=== PATIENT | female | born 1980 | race Hispanic/Latino ===

== ENCOUNTER 2016-04-26 21:00 | Emergency (ER) | payer MEDICAID, MEDICARE ==
[~2016-04-26] VITALS: Ht 160 cm; Wt 75.5 kg
[~2016-04-26 21:00] MED LIST: DSS100 PO; IBUP-1152 PO; OXYC-176 PO; PREN1TAB69 PO; ProAirHFA IH
[2016-04-26 21:18] VITALS: BP 113/71; PULSE 74; RESP 16; O2SAT 100
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
[2016-04-26 23:21] VITALS: BP 113/71; PULSE 74; RESP 16; O2SAT 100
--- NOTE | 2016-04-27 07:52 | DRSVH ---
PROCEDURE: X-RAY CHEST ONE VIEW ([id number]) INDICATIONS: fall, trauma TECHNIQUE: One view of the chest was acquired. COMPARISON: None. FINDINGS: Surgical changes and devices: Surgical clips right upper quadrant. Lungs and pleura: No pleural effusions or pneumothorax. Lungs are clear. Mediastinum: Mediastinal contours appear normal. Heart size is normal. Bones and chest wall: No suspicious bony lesions. Overlying soft tissues appear unremarkable. IMPRESSION: No displaced rib fractures. No apparent sequelae of an occult fracture. Dictated by: Jose Angel Vega M.D. on 04/27/2016 at 7:50 Approved by: Jose Angel Vega M.D. on 04/27/2016 at 7:50
--- NOTE | 2016-04-27 07:53 | DRSVH ---
PROCEDURE: X-RAY CERVICAL SPINE, 2 OR 3 VIEWS INDICATIONS: fall, trauma TECHNIQUE: 3 view(s) of the cervical spine were acquired. COMPARISON: None. FINDINGS: Bones: Cervical lordosis is maintained. No fractures or dislocations to the T1 level. The lateral m asses of C1 appear intact on the odontoid view. No suspicious bony lesions. Disc spaces are maintain ed. Soft tissues: No prevertebral soft tissue swelling. IMPRESSION: Normal cervical spine Dictated by: Jose Angel Vega M.D. on 04/27/2016 at 7:51 Approved by: Jose Angel Vega M.D. on 04/27/2016 at 7:51
--- NOTE | 2016-04-27 07:54 | DRSVH ---
PROCEDURE: X-RAY RIGHT SHOULDER, MINIMUM TWO VIEWS ([id number]) INDICATIONS: fall, trauma TECHNIQUE: 3 views of the shoulder were acquired. COMPARISON: None. FINDINGS: Bones: No fractures or dislocations. No suspicious bony lesions. Visualized ribs appear intact. Soft tissues: No suspicious soft tissue calcifications. IMPRESSION: Normal shoulder Dictated by: Jose Angel Vega M.D. on 04/27/2016 at 7:52 Approved by: Jose Angel Vega M.D. on 04/27/2016 at 7:52
--- NOTE | 2016-04-27 08:37 | DRSVH ---
PROCEDURE: US OB PLACENTA EVALUATION LIMITED INDICATIONS: fall, back trauma, cramping OUTSIDE/PRIOR DATING DATA: Last menstrual period (LMP): Unknown LMP-based estimated date of delivery (ANJUM): N./A.. First dating scan (date and location): . Estimated date of delivery (ANJUM) from first dating scan: 08/09/2016. TECHNIQUE: Real-time scanning was performed of the fetus, with image documentation. Endovaginal scanning: Not required COMPARISON: None. FINDINGS: A single living intrauterine gestation is present. Presentation: Breech. Placenta: Placental position is left frontal, without previa or abruption. Amniotic fluid index: Not measured heart rate: 145 beats per minute. Maternal cervical canal: 4.1 cm long. Normal lower limit is 2.5 cm. Estimated gestational age from initial scan: 25 weeks. IMPRESSION: Live intrauterine gestation in breech position. No placental abruption. Visualized anatomy is n ormal. Dictated by: Jose Angel Vega M.D. on 04/27/2016 at 8:35 Approved by: Jose Angel Vega M.D. on 04/27/2016 at 8:35
== END 2016-04-26 23:29 | disposition home or self-care (01) ==
LOC: SED 21:00
DX: O9A.213 Injury, poisoning and certain other consequences of external causes complicating pregnancy, third trimester (principal); S16.1XXA Strain of muscle, fascia and tendon at neck level, initial encounter; S40.011A Contusion of right shoulder, initial encounter; W01.198A Fall on same level from slipping, tripping and stumbling with subsequent striking against other object, initial encounter; Y93.89 Activity, other specified; Y92.89 Other specified places as the place of occurrence of the external cause; Y99.8 Other external cause status; Z3A.25 25 weeks gestation of pregnancy

== ENCOUNTER 2016-08-01 13:28 | Inpatient (IN) | payer MEDICARE, MEDICAID ==
[~2016-08-01] VITALS: Ht 160 cm; Wt 87.5 kg
[2016-08-01] MEDS ORDERED: Ondansetron 2 mg/mL 2 mL Inj ONE (14:00)
[2016-08-01] MEDS ORDERED: Phenylephrine/NS 100 mCg/mL 10 mL Syringe IVPUSH ONE (14:00)
[2016-08-01] MEDS ORDERED: Bupiv-Spinal 0.75%/Dex 8.25% 2 mL Inj ONE (14:00)
[2016-08-01] MEDS ORDERED: Morphine PF 1 mg/mL 10 mL Inj ONE (14:00)
[2016-08-01] MEDS ORDERED: fentaNYL-PF 50 mCg/mL 2 mL Inj ONE (14:00)
[2016-08-01] MEDS ORDERED: Dexamethasone 4 mg/mL Inj ONE (14:00)
[2016-08-01] MEDS ORDERED: Lactated Ringer's 1,000 ML IV SCH ×2 (14:06→17:06)
[2016-08-01] MEDS ORDERED: Carboprost 250 mCg/mL Inj IM PRN ×2 (14:10→19:15)
[2016-08-01] MEDS ORDERED: Sodium Citrate-Citric Acid 15 mL Solution PO SCH (14:10)
[2016-08-01] MEDS ORDERED: Methylergonovine 0.2 mg/mL Inj IM PRN ×2 (14:10→19:15)
[2016-08-01] MEDS ORDERED: Oxytocin 10 Unit/mL Inj IM PRN ×2 (14:10→19:15)
[2016-08-01] MEDS ORDERED: Hemorrhage Kit, Post Partum XX ONE ×2 (14:10→19:15)
[2016-08-01] MEDS ORDERED: CeFAZolin Inj 2 GM in IV Premix 1 EACH IV STA (14:37)
[2016-08-01 15:09] LABS: Mean Corpuscular Hemoglobin 27.7 pg (27.0-35.0); Mean Corpuscular Volume 86.2 fL (81-100)
[2016-08-01] MEDS ORDERED: Sodium Biphos-Phos 133 mL Enema RECTAL ONE (15:35)
[2016-08-01] MEDS ORDERED: fentaNYL-PF 50 mCg/mL 2 mL Inj IVPUSH PRN ×2 (15:45→17:10)
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
[2016-08-01] MEDS ORDERED: Lactated Ringer's 1,000 ML IV ONE (17:01)
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
[2016-08-01] MEDS ORDERED: Lactated Ringer's 500 ML IV PRN (17:06)
[2016-08-01] MEDS ORDERED: Ondansetron 2 mg/mL 2 mL Inj IVPUSH PRN (17:10)
[2016-08-01] MEDS ORDERED: Dexamethasone 4 mg/mL Inj IVPUSH PRN (17:10)
[2016-08-01] MEDS ORDERED: Phenylephrine 10,000 mCg/mL Inj IVPUSH PRN (17:10)
[2016-08-01] MEDS ORDERED: MetoCLOpramide 5 mg/mL 2 mL Inj IVPUSH PRN (17:10)
[2016-08-01] MEDS ORDERED: diphenhydrAMINE 50 mg Capsule PO PRN (19:15)
[2016-08-01] MEDS ORDERED: Sodium Chloride LOK Flush 10 mL Syringe IVFLUSH PRN (19:15)
[2016-08-01] MEDS ORDERED: LANOlin HPA 7 Gm Ointment TOPICAL PRN (19:15)
[2016-08-01] MEDS ORDERED: Oxytocin 30 Units/500 mL LR 30 UNITS in IV Premix 1 EACH IV PRN (19:15)
--- NOTE | 2016-08-01 20:21 | PCM.ANEP2 ---
Post Anesthesia Evaluation ASA/CMS Post Anesthesia VS in Patient's Normal Range?: Yes Resp Stable; Airway Patent?: Yes CV Function & Hydration Stable: Yes Mental Status Recovered?: Yes Pain control Satisfactory?: Yes N/V Control Satisfactory?: Yes Kevin Patel MD Aug 01, 2016 20:21
--- NOTE | 2016-08-01 20:21 | PCM.ANEP1 ---
Post Anesthesia Phase 1 PACU Phase 1 Assessment Vital Signs BP 130/70 HR 80 SPO2 96 TEMP 36.3 AWAKE AND ALERT Pain Scale Score: 7 Lungs: Clear to Auscultation, Normal Air Movement Kevin Patel MD Aug 01, 2016 20:21
[2016-08-01] MEDS: Lactated Ringer's 1,000 ML IV SCH (21:08)
[2016-08-01] MEDS: Acetaminophen IV 1,000 MG in IV Premix 1 EACH IV PRN (21:22)
--- NOTE | 2016-08-02 03:11 | OP ---
[address] [address] OPERATIVE REPORT PATIENT: ANTHONY LOVETT I : 1980 MR#: [id number] ADMIT: 08/01/2016 JOB ID: [id number] DATE OF SURGERY: 08/01/2016 PREOPERATIVE DIAGNOSIS(ES): 1. Previous delivery x2. 2. A 39 week 1 day gestation. 3. Sterilization. POSTOPERATIVE DIAGNOSIS(ES): 1. Previous delivery x2. 2. A 39 week 1 day gestation. 3. Sterilization. 4. Delivered. PROCEDURE PERFORMED: 1. Repeat low-transverse delivery. 2. Bilateral tubal ligation using modified [place] method. SURGEON: Shayy Sosa MD. COOKER TENDER: Sandoval Vela MD. RESIDENT: Krista Thompson DO, PGY-1. COMPLICATIONS: None. PATHOLOGY: None. FINDINGS AT TIME OF SURGERY: A female infant in cephalic presentation with weight of 3545 g. Apgars of 8 and 8. There is thick meconium stained amniotic fluid upon entry into the amniotic sac. The uterus, ovaries and fallopian tubes are normal bilaterally. Otherwise, there was no significant intraperitoneal adhesion. INDICATION FOR PROCEDURE: The patient is a 35-year-old 5, para 3 with a history of two prior deliveries and undesired fertility. She presented to triage in early labor. PROCEDURE: The patient was taken to the operative room, where her spinal anesthesia was found be adequate. She was placed in a lithotomy position in a leftward tilt and prepared and draped in normal sterile fashion. A Pfannenstiel incision was made with a scalpel in the skin. This was carried down to the underlying fascia with the Bovie cautery. Fascia was nicked in the midline an this incision was extended laterally with Carson scissors. The fascia was then tented up and the underlying rectus muscle was dissected off with both blunt and sharp dissection superiorly and inferiorly. Rectus muscle in midline and peritoneum entered bluntly with surgeon's hands. This incision was extended with traction. The lower uterine segment was identified and incised in a low transverse fashion with a scalpel. Infant was delivered in a cephalic presentation without difficulty. Delayed cord clamping was performed. After one minute the cord was double clamped and ligated. Infant handed off to the waiting case management social worker. The placenta was removed manually. The uterus was exteriorized, cleared of all clots and debris. The uterine incision was repaired in a single layer with 0-Vicryl suture. Good hemostasis was assured. A bilateral tubal ligation was performed. The right fallopian tube was grasped in the isthmic portion and a defect was made in the mesosalpinx. Two free ties of 0 chromic were used to isolate and ligate a segment of tube and the intervening segment was excised. The tubal lumen were cauterized with the Bovie cautery. Good hemostasis was assured. In a similar fashion the left fallopian tube was grasped in mid isthmic portion and a defect made in the mesosalpinx. Two free ties of 0 chromic suture were used to isolate and ligate a segment of tube and the intervening segment was excised. The tubal lumen were then cauterized with Bovie cautery. The gutters were then irrigated with copious amounts of normal saline and the uterus returned to the patient's peritoneal cavity. The skin was inspected a second time. Another suture of 0-Vicryl in a [id number] fashion was used for hemostasis. More irrigation was performed. Good hemostasis was assured. The fascia was then reapproximated with 0 PDS in a running fashion. They were anchored at the apices and tied separately in the midline. The subcutaneous layer was closed with 0 plain gut. Skin was closed with 4-0 Monocryl in a subcuticular fashion. Dermabond and Steri-Strips applied. All lap, instrument, and needle counts correct x2 at the end of procedure. Patient was taken to room in good condition. TAYLOR
[2016-08-02] MEDS: Lactated Ringer's 1,000 ML IV SCH ×2 (03:15→19:15)
[2016-08-02] MEDS: Acetaminophen IV 1,000 MG in IV Premix 1 EACH IV PRN (03:28)
[2016-08-02 06:28] LABS: Mean Corpuscular Volume 87.1 fL (81-100)
[2016-08-02] MEDS: Ascorbic Acid 500 mg Tablet PO SCH (08:49)
[2016-08-02] MEDS: oxyCODONE-Acetamin 5-325 mg Tablet PO PRN ×4 (08:49→23:05)
[2016-08-02] MEDS ORDERED: diphenhydrAMINE 25 mg Capsule PO PRN (19:32)
--- NOTE | 2016-08-02 20:20 | PCM.PNOBPP ---
Subjective Date of Service Aug 02, 2016 Post : Repeat Cesere[place] Delivery Subjective Ms. White is a 35 y/o now 4 woman at 39 weeks 1 days gestation s/p repeat section and bilateral tubal ligation. Today is post-op and post day 1. She does not have nausea or vomiting. She had a small bowel movement yesterday but still feels constipated. She has pain at the incision site, especially on the left side. She has been up walking since yesterday evening. 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 Lochia: Other (moderate) Gastrointestinal: Good Appetite, No N/V, Passing Flatus Postop Activity: Ambulating Independently, Ambulating in [place] Labs Blood type O+, Pap smear negative, varicella immune, rubella immune, HIV non- reactive, RPR non-reactive, chlamydia negative, gonorrhea negative, 1 hour glucose tolerance test within normal limits. Rubella: Immune Blood Type: O RH Type: Positive Labs Laboratory Tests 08/02/16 06:05: White Blood Count 13.7, Red Blood Count 3.96, Hemoglobin 11.1, Hematocrit 34.5, Mean Corpuscular Volume 87.1, Mean Corpuscular Hemoglobin 28.0, Mean Corpuscular Hemoglobin Concent 32.2, Red Cell Distribution Width 14.6, Platelet Count 268 Exam Vital Signs Vital Signs: VS reviewed, stable Exam Abdomen: Uterus is, Fundus firm, Abdomen soft, Abdomen appropriately tender : Melendez catheter Extremities: Edema 1+ (bilateral pedal) Lungs: Clear to Auscultation, Normal Air Movement Heart: Exam Unremarkable, Regular Rate/Rhythm, Normal S1 General: Alert, Oriented X3, Cooperative, No Acute Distress Surgical Wound : Incision General Appearence: Steri Strips, Well Approximated, No Erythemia, No Discharge, No Inflammatory Changes, Wound under dressing Dressing & Drainage Status: Dry & Intact OB Post Assessment/Plan Assessment 1. 35 y/o now 4 woman status post repeat section due to 2 previous sections. Today is post-op and post- day 1. -Continue routine post- care 2. Desired sterilization, s/p bilateral tubal ligation. Post-op day 1. 3. Headache, recurrent, resolved. -Continue to monitor blood pressure and will start ibuprofen after delivery as needed for pain 4. Constipation, recurrent -Continue as needed medications 5. Chronic depression -Will resume citalopram 40 mg once daily VTE Mechanical Devices: Intermittant Pneumatic CD Post plan: Continue routine post care, Discharge home tomorrow Krista Thompson DO Aug 02, 2016 20:20
[2016-08-03] MEDS: Lactated Ringer's 1,000 ML IV SCH (00:11)
[2016-08-03] MEDS: oxyCODONE-Acetamin 5-325 mg Tablet PO PRN ×3 (03:01→17:17)
[2016-08-03] MEDS: Ascorbic Acid 500 mg Tablet PO SCH (07:21)
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
[2016-08-03 14:38] LABS: Mean Corpuscular Hemoglobin 27.8 pg (27.0-35.0); Mean Corpuscular Volume 88.7 fL (81-100)
[2016-08-03 15:17] LABS: Magnesium 1.7 mg/dL (1.6-2.6); Phosphorus 4.5 mg/dL (2.5-4.9); TROPONIN T < 0.010 ug/L (0.0-0.011)
[2016-08-03] MEDS: hydrOXYzine Pamoate 25 mg Capsule PO PRN ×2 (15:35→17:17)
--- NOTE | 2016-08-03 16:50 | DRSVH ---
PROCEDURE: MRI BRAIN WITHOUT CONTRAST ([id number]) INDICATIONS: Left facial drooping,cva symptoms TECHNIQUE: Noncontrast axial T1 spin echo, axial T2 fast spin echo, sagittal and axial FLAIR, coronal T2 fast sp in echo, axial gradient echo, axial diffusion and ADC through the brain. COMPARISON: [facility], CT, CT BRAIN WO CON, 08/03/2016, 13:20. FINDINGS: Image quality: Excellent. CSF Spaces: Basal cisterns are patent. No extra-axial fluid collections. Ventricles are normal in size and shape. Brain: No intracranial masses or hemorrhage. Frank/white matter interface is normal. Brainstem appe ars normal. Diffusion-weighted images demonstrate no acute ischemic insult. No chronic ischemic ins ults. Normal intravascular flow voids are present. Old left parieto-occipital infarct with subseque nt encephalomalacia and ex vacuo ventricular dilation. 3 mm focus of hypointense susceptibility signal within the left frontal lobe. No calcifications withi n this region are identified on CT brain examination. Skull and face: Calvarium has normal marrow signal. Orbits appear normal. Sinuses: Sinuses and mastoids are clear. IMPRESSION: 1. No acute intracranial process. No acute ischemia. 2. Prominent left parietal occipital infarct. 3. Left frontal focus of hypointense susceptibility signal as above. This could represent a small cav ernous angioma. Dictated by: Lexi Feng M.D. on 08/03/2016 at 16:46 Approved by: Lexi Feng M.D. on 08/03/2016 at 16:49
[2016-08-03 17:02] LABS: APPEARANCE,URINE CLEAR (CLEAR,HAZY); COLOR,URINE STRAW (YELLOW); OCCULT BLOOD,URINE SMALL (NEGATIVE); UROBILINOGEN,URINE NORMAL (NORMAL)
--- NOTE | 2016-08-03 19:13 | DRSVH ---
PROCEDURE: US VENOUS LEG DUPLEX BILATERAL INDICATIONS: edema bilateral TECHNIQUE: Real-time imaging, as well as color and pulse Doppler interrogation, were performed of the deep veins of both legs from the inguinal ligament to the popliteal fossa. COMPARISON: None. FINDINGS: The deep veins are normally compressible, and free of intraluminal thrombus. Color and pu lse Doppler demonstrate normal phasic intravascular flow. There is normal augmentation response to d istal compression maneuver. IMPRESSION: No DVT in the lower extremities. Dictated by: Wiley Park M.D. on 08/03/2016 at 19:11 Approved by: Wiley Park M.D. on 08/03/2016 at 19:11
--- NOTE | 2016-08-03 19:15 | DRSVH ---
PROCEDURE: US BILATERAL DUPLEX DOPPLER IMAGING OF THE CAROTIDS ([id number]) INDICATIONS: cva TECHNIQUE: Color and pulse Doppler interrogation was performed of both carotid systems, with image documentation and velocity measurements. COMPARISON: None. FINDINGS: All stenosis calculations are based on NASCET criteria. Right side: Common carotid artery peak systolic velocity: 85 cm/sec. Internal carotid artery peak systolic velocity: 116 cm/sec. Internal carotid artery end diastolic velocity: 30 cm/sec. External carotid artery peak systolic velocity: 119 cm/sec. ICA/CCA peak systolic ratio: 1.38. Frank scale imaging description: No significant PACS Percent internal carotid artery stenosis: No significant stenosis. Vertebral artery: Flow direction is antegrade. Left side: Common carotid artery peak systolic velocity: 115 cm/sec. Internal carotid artery peak systolic velocity: 101 cm/sec. Internal carotid artery end diastolic velocity: 31 cm/sec. External carotid artery peak systolic velocity: 91 cm/sec. ICA/CCA peak systolic ratio: 0.9. Frank scale imaging description: No significant PACS Percent internal carotid artery stenosis: No significant stenosis. Vertebral artery: Flow direction is antegrade. IMPRESSION: No significant carotid stenosis bilaterally. Dictated by: Wiley Park M.D. on 08/03/2016 at 19:11 Approved by: Wiley Park M.D. on 08/03/2016 at 19:14
--- NOTE | 2016-08-03 19:51 | DRSVH ---
CORRECTED ACCESSION/PLACER NUMBER AND PROCEDURE NAME ON 08/06/16 PROCEDURE: MRA ANGIOGRAM NECK WITH AND WITHOUT CONTRAST ([id number]) INDICATIONS: left facial droop TECHNIQUE: Axial and sagittal TruFISP through the neck. Coronal dynamic MRA after the administration of contras t in the arterial and venous phases, with rotating 3-dimensional maximum intensity projection (MIP) r eformats constructed from subtraction images. COMPARISON: [facility], MR, MR BRAIN WO CON, 08/03/2016, 16:16. FINDINGS: Image quality: Excellent. Carotid system: Great vessels demonstrate a bovine aortic arch with common origin of the right brach iocephalic and left common carotid arteries. The origins of the common carotid arteries appear ganesh l. The calibers and courses of the common carotid arteries also appear patent bilaterally. The jenkins tid bulbs appear widely patent bilaterally. The internal carotid arteries are patent up to the Circl e of [place]. Posterior circulation: The origins of the vertebral arteries are patent. There is a left dominant v ertebrobasilar system with a diminutive right vertebral artery. The distal right vertebral artery is not well-visualized and may represent distal occlusion or an anatomic variant. The basilar artery s upplied by the left vertebral artery and appears patent along its course. Miscellaneous: Subclavian arteries appear patent bilaterally. Pre-contrast images through the neck demonstrate no definite soft tissue abnormalities. The visualized brain again demonstrates a large r egion of encephalomalacia in the left occipital and posterior temporal lobes consistent with prior in farct or. IMPRESSION: 1. Left dominant vertebrobasilar system with a diminutive right vertebral artery which is not visual ized distally suggesting occlusion or an anatomic variant. Basilar artery is supplied by the dominan t left vertebral artery and appears patent. 2. No high-grade stenosis or occlusion of the anterior circulation. Carotid bulbs are widely patent . The estimate of stenosis included in the report of the imaging study was calculated using the NASCET method Dictated by: Lenin Valencia M.D. on 08/03/2016 at 19:50 Approved by: Lenin Valencia M.D. on 08/03/2016 at 19:50
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
[2016-08-04] MEDS: oxyCODONE-Acetamin 5-325 mg Tablet PO PRN ×2 (02:05→16:14)
--- NOTE | 2016-08-04 14:44 | DRSVH ---
PROCEDURE: MRA ANGIOGRAM HEAD WITHOUT CONTRAST ([id number]) INDICATIONS: Left facial droop TECHNIQUE: Noncontrast axial 3-D [id number] MR angiogram, with 3-dimensional maximum intensity projection (M IP) reformats of the internal carotid arteries and posterior circulation then performed. COMPARISON: [facility], MR, MR ANGIO NECK W CON, 08[facility]03[facility]2016, 19[facility] CON, 08/03/2016, 13:20. FINDINGS: Image quality: Excellent. Anterior circulation: Intracranial internal carotid arteries are patent bilaterally. The flow withi n the paired anterior cerebral arteries is patent bilaterally. The flow within the middle cerebral a rteries is patent bilaterally. The anterior communicating artery is visualized. No high-grade steno ses, occlusions, or aneurysms. Posterior circulation: A left dominant vertebral basilar system is redemonstrated with the basilar a rtery supplied by the left vertebral artery. A diminutive right vertebral artery terminates in the p osterior inferior cerebellar artery, compatible with an anatomic variant. The posterior cerebral art eries are patent bilaterally. No high-grade stenoses, occlusions, or aneurysms. Limited evaluation of the brain redemonstrates a large region of encephalomalacia involving the left posterior parietal, posterior temporal, and occipital lobes consistent with an old infarct. IMPRESSION: 1. No high-grade stenosis or occlusion of the central intracranial arteries. 2. Left dominant vertebral basilar system with a diminutive right vertebral artery terminating in a posterior inferior cerebellar artery. Findings are compatible with an anatomic variant. Dictated by: Lenin Valencia M.D. on 08/04/2016 at 14:42 Approved by: Lenin Valencia M.D. on 08/04/2016 at 14:42
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
--- NOTE | 2016-08-04 19:02 | DRSVH ---
[facility] [address] [place] [address] Echocardiogram Report Name: ANTHONY LOVETT Bonifacio e: 08/04/2016 Height: 63 in Hospital Exam Location: [facility] Weight: 193 lb Gender: Female BSA: 1.9 m2 : 1980 Age: 35 yrs Reason For Study: CVA Ordering Physician: HOSPITALIST [facility] Performed By: Alana Person Referring Physician: Dr. Parag Riveor Interpretation Summary Left ventricular systolic function is normal without focal wall motion abnormalities with the ejection fraction estimated to be 60-65%. There is mild concentric left ventricular hypertrophy but diastolic parameters suggest normal left ventricular diastolic function and normal filling pressures. The right ventricle is normal in size and function. Pulmonary artery pressures cannot be estimated because of the lack of a measurable TR jet velocity but the IVC suggests a low right atrial pressure of 3 mm Hg. Right atrial size is normal while the left atrium is mildly dilated. The interatrial septum appears intact with no evidence for an atrial septal defect or any Doppler evidence for an interatrial shunt. There is mild mitral regurgitation but no other significant valvular heart disease. Procedure: A two-dimensional transthoracic echocardiogram with color flow and Doppler was performed. The study quality was technically adequate. There is no prior echocardiogram noted for this patient. The patient was in normal sinus rhythm during the exam. Left Ventricle: The left ventricle is normal in size. There is mild concentric left ventricular hypertrophy. Left ventricular systolic function is normal without focal wall motion abnormalities. The ejection fraction is estimated to be 60-65%. The transmitral spectral Doppler flow pattern is normal for age. Assessment of diastolic parameters indicates normal left ventricular diastolic function and normal filling pressures. Right Ventricle: The right ventricle is normal in size and function. Atria: The left atrium is mildly dilated. Right atrial size is normal. The interatrial septum is intact with no evidence for an atrial septal defect. There is no Doppler evidence for an interatrial shunt. Mitral Valve: The mitral valve is normal in structure and function. There is mild mitral regurgitation. Aortic Valve: The aortic valve is normal in structure and function. The aortic valve is trileaflet. The aortic valve opens well. No aortic regurgitation is present. Tricuspid Valve: The tricuspid valve is normal in structure and function. There is a trace or physiologic amount of tricuspid regurgitation. Pulmonary artery pressures cannot be estimated because of the lack of a measurable TR jet velocity. Pulmonic Valve: The pulmonic valve is not well seen, but is grossly normal. There is a trace or physiologic amount of pulmonic regurgitation. There is no other significant valvular heart disease. Great Vessels: The aortic root is normal size. The dimensions of the ascending aorta are normal. The aortic arch is normal in size. The IVC is of normal diameter and collapses greater than 50% with a sniff. This suggests a low right atrial pressure of 3 mm Hg. Pericardium/ Pleura There is no pericardial effusion. There is no pleural effusion. MMode/2D Measurements & Calculations LVIDd: 4.2 cm RA long axis LVOT diam: 1.8 cm LVIDs: 2.5 cm LA A2 area: 23.2 cm Ao root diam FS: 39.5 % LA A4 area: 22.3 cm RA area IVSd: 1.1 cm LA length (vol) Aortic Jxn: 2.1 cm LVPWd: 1.3 cm : 18.1 cm asc Aorta Diam LA vol: 76.4 ml RA vol LA vol index : 50.2 ml Ao Arch Diam (Prox RA Trans): 2.3 cm : 26.4 mm2 IVC diam: 1.2 cm LV galarza. diameter/BSA LV sys. diameter/BSA (cm/m^2): 2.2 (cm/m^2): 1.3 Doppler Measurements & Calculations Ao V2 max MV E max martinez MV E/A: 1.8 TR max martinez : 151.0 cm/sec : 66.2 cm/sec Med Peak E' Martinez : 188.7 cm/sec Ao max PG MV A max martinez TR max PG : 9.1 mmHg : 36.7 cm/sec E/E' med: 4.8 : 14.2 mmHg Ao mean PG MV P1/2t: 55.8 msec Lat Peak E' Martinez PA V2 max : 81.5 cm/sec LVOT Max Martinez E/E' lat: 3.8 PA mean PG : 111.7 cm/sec E/e' average: 4.3 PA Accel Time LEELEE(I,D): 1.8 cm : 0.09 sec sev ratio MV dec time MV P1/2t max martinez Ao V2 mean LV V1 max PG : 0.19 sec : 106.5 cm/sec MVA(P1/2t): 3.9 cm2 Ao V2 VTI: 30.7 cm LV V1 VTI LEELEE(V,D): 1.9 cm2 : 20.8 cm PA V2 mean LEELEE indexed to BSA : 58.6 cm/sec (cm^2/m^2): 0.93 Reading Physician:07:01 PM
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
[2016-08-05] MEDS: oxyCODONE-Acetamin 5-325 mg Tablet PO PRN ×3 (05:15→13:30)
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
[2016-08-05] MEDS: hydrOXYzine Pamoate 25 mg Capsule PO PRN (09:00)
--- NOTE | 2016-08-05 14:37 | PCM.DIOB ---
Obstetrical Disch Instruction Date of Service: Aug 05, 2016 Dates of Hospitalization Date of Hospital Admission Aug 01, 2016 at 13:59 Providers Admitting Physician: Shayy Sosa MD Primary Care Physician: Antonio Rivero MD Attending Physician: Shayy Sosa MD Discharge Diagnosis Discharge Diagnosis POD#4 S/P RLTCS, with sterilization, fascial drooping (resolved), anemia. Problems: Diet Discharge Diet: No restrictions Activity Discharge Activity-General: Pelvic Rest for 6 weeks, No lifting >10 pounds for 4-6 weeks, Other (avoid sleep deprivation, avoid stress.) Dressing and Incisional Care Dressing Care: Keep dressing clean, dry & intact Hygiene: May shower Additional Instructions Discharge Instructions Come back to ER for any neurological S/Os. Call 911 for any seizure activity. Follow Up Plan Follow-up Provider (F9): Shayy Sosa MD Follow-up appointment: Weeks (2) Call your provider for: Fever or Chills, Shortness of breath, Heavy vaginal bleeding, Other (excessive pain not controlled with pain medications, abnormal wound discharge, any seizure activity, any neurological symptoms.) Shiv Leggett MD Aug 05, 2016 14:37
[2016-08-05] MEDS ORDERED: FERR-74 PO (14:41)
[2016-08-05] MEDS ORDERED: IBUP-1827 PO (14:41)
[2016-08-05] MEDS ORDERED: DOCU-41 PO (14:41)
[2016-08-05] MEDS ORDERED: OXYC1TAB24 PO (14:41)
[2016-08-05] MEDS ORDERED: ASCO-294 PO (14:41)
--- NOTE | 2016-08-05 21:43 | DIS ---
[address] [address] DISCHARGE SUMMARY PATIENT: ANTHONY LOVETT I : 1980 MR#: [id number] ADMIT: 08/01/2016 JOB ID: [id number] DIS: 08/05/2016 REASON FOR ADMISSION: Admitted for elective repeat for prior two sections and tubal sterilization. DISCHARGE DIAGNOSES: 1. Postoperative day number four status post repeat low-transverse section with bilateral tubal ligation. 2. Anemia. 3. Facial drooping secondary to prior history of traumatic brain injury. HOSPITAL COURSE: For further details, please refer to the fully dictated notes. On the day of discharge, patient had no complaints. Denied any headache, visual symptoms. Old previous neurological symptoms were resolved. Pain controlled with pain medication. with no difficulties. Was evaluated by Dr. Smith, the neurologist, and he decided that her symptoms are recrudescence of prior encephalomalacia related to traumatic brain injury. Symptoms are due to postop electrolyte changes. PHYSICAL EXAMINATION: On examination, patient is alert, oriented times three. Vital signs are 133/70 for blood pressure. Respirations are 16. Pulse is 86. Temperature 37 degrees centigrade. Heart is regular rate and rhythm. Positive S1, S2. Lungs clear to auscultation bilaterally. Abdomen: firm uterine fundus palpated at 2 cm below the umbilicus. Incision is clean, dry, and intact with appropriate tenderness around the incision. Perineum: No active bleeding. Lower extremities: No calf tenderness appreciated bilaterally. Deep tendon reflexes are 3+ upper, 3+ lower, no clonus. Results: Echocardiogram 08/04/2016 showed an ejection fraction of 60-65% with mild concentric left ventricular hypertrophy, associated with normal left ventricle diastolic function. 2) Left atrium mildly enlarged. 3) Mild mitral regurgitation. Hospitalist was okay with these findings after discussion today. CT brain showed extensive left parietal lobe encephalomalacia. Labs on postop day number two, H and H is 10.8 and 34.5, platelets 260, white blood count 7.8. Patient was started on iron supplementation. Neurology consult by Dr. Dell Smith. He recommended no antiseizure medications at that point. If patient starts to have breakthrough seizures, she is recommended to stop breast-feeding, start Topamax and follow up with neurologist, Dr. Lala or Dr. Smith. she needs to followup with her primary care physician, Dr. Rivero as well. Dr. Smith, the neurologist, thinks the patient's facial drooping and other neurologic symptoms that were noted are due to postop electrolyte changes that caused recrudescence of her prior encephalomalacia that is related to traumatic brain injury history. DISCHARGE PLAN: Patient will be discharged home in a stable condition. Will follow up with Dr. Rivero, her primary care physician, and Dr. Lala, her neurologist, and will follow Dr. Sosa, her admissions director. Instructed to have nothing in the vagina for six weeks. No heavy lifting more than baby's weight. Instructed to call for fever, chills, severe abdominal pain not controlled with medication, heavy vaginal bleeding, or any neurological symptoms. She was instructed to call 911 for any seizure activity. She was also instructed to come to the ER for any neurological symptoms. DISCHARGE MEDICATIONS: 1-Percocet 5/325, 1 tablet with every 4 hours as needed for severe pain. 2-Ibuprofen 600 mg every 6 hours needed for moderate pain. 3-Colace 100 mg twice daily. 4-Ferrous sulfate 325 mg twice daily. 5-Vitamin C 500 mg twice daily. 6- Continue vitamins once daily. Continue home medications. The patient understood the discharge instructions. She will comply with her discharge plan. The patient's discharge was discussed in detail with hospitalist, Dr. Stoll, and he agreed to go ahead and discharge the patient with the above follow up plan. [facility] NETWORKGillian
--- NOTE | 2016-08-06 11:03 | PATH ---
SURGICAL PATHOLOGY Attending Physician:Shayy Sosa, CASE STATUS: Signed Out PATIENT NAME: ANTHONY LOVETT I. PID: [id number] : 1980 DATE COLLECTED:08/01/2016 00:00 SPECIMEN: 1: Fallopian Tube, Sterilization 2: Fallopian Tube, Sterilization CLINICAL HISTORY: BILATERAL TUBAL LIGATION 1). RIGHT FALLOPIAN TUBE SEGMENT 2). LEFT FALLOPIAN TUBE SEGMENT FINAL DIAGNOSIS: 1. 2.RIGHT FALLOPIAN TUBE, LEFT FALLOPIAN TUBE, SEGMENTS, STERILIZATION: TWO COMPLETE CIRCUMFERENTIAL SEGMENTS OF FALLOPIAN TUBE. NO EVIDENCE OF NEOPLASM. ICD10 CODE Z30.2 GROSS DESCRIPTION: The specimen is received in 2 containers not labeled as to the fixative, labeled with the patient's name. 1). The specimen is sublabeled "right fallopian tube segment" and consists of a 0.6 x 0.5 x 0.5 CM light rose-cantor cylindrical-shaped portion of tissue. The specimen is inked blue. The specimen is trisected and totally submitted in cassette 1A. 2). The specimen is sublabeled "left fallopian tube segments" and consists of a 0.7 x 0.7 x 0.5 CM caballero-cantor cylindrical-shaped portion of tissue. The specimen is inked blue. The specimen is trisected and entirely submitted in cassette 2A. 08/02/2016 [facility] MICRO DESCRIPTION: See diagnosis. ICD-9 CODES: CPT CODES: 1: 75032 2: 51715 Electronically Signed Out Cintia Simms MD [facility] Pathology [facility] [address], [place] [address] Technical component performed at [facility], [address] [place] [address] Ave[address], [place], [address]
== END 2016-08-05 15:32 | disposition home or self-care (01) | DRG 766 ==
LOC: FBCO 13:28 → FBC 13:59
PROVIDERS: ADMIT Obstetrics & Gynecology; ATTEND Obstetrics & Gynecology
PROC: 0UB70ZZ Excision of Bilateral Fallopian Tubes, Open Approach (ICD-10-PCS; 2016-08-01)
PROC: 10D00Z1 Extraction of Products of Conception, Low, Open Approach (ICD-10-PCS; principal; 2016-08-01 17:50)
DX: O34.211 Maternal care for low transverse scar from previous cesarean delivery (principal); O09.523 Supervision of elderly multigravida, third trimester; Z3A.39 39 weeks gestation of pregnancy; Z37.0 Single live birth; Z30.2 Encounter for sterilization; R51 Headache; K59.00 Constipation, unspecified; Z87.820 Personal history of traumatic brain injury; R29.810 Facial weakness; O90.81 Anemia of the puerperium

== ENCOUNTER 2016-12-25 11:35 | Emergency (ER) | payer MEDICARE, MEDICAID ==
[~2016-12-25] VITALS: Ht 160 cm; Wt 75.0 kg
[~2016-12-25 11:35] MED LIST changes: +ASCO-294 PO; +DOCU-41 PO; +FERR-74 PO; +IBUP-1827 PO; +OXYC1TAB24 PO
[2016-12-25 12:14] VITALS: BP 115/78; PULSE 99; RESP 16; O2SAT 98
[2016-12-25 13:05] LABS: BASOPHILS % (AUTO) 0.1 % (0-3); EOSINOPHILS % (AUTO) 0.1 % (0-5); MONOCYTES % (AUTO) 14.8 % (4-12); Mean Corpuscular Hemoglobin 30.1 pg (27.0-35.0); NEUTROPHILS % (AUTO) 69.3 % (40-74); Platelet Count 223 bil/L (150-400)
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
[2016-12-25 13:26] LABS: Magnesium 2.1 mg/dL (1.6-2.6)
[2016-12-25] MEDS ORDERED: Ketorolac 15 mg/mL Inj IVPUSH ONE (13:35)
[2016-12-25] MEDS ORDERED: 0.9% Sodium Chloride 1,000 ML IV ONE (13:35)
[2016-12-25] MEDS ORDERED: Ondansetron 2 mg/mL 2 mL Inj IVPUSH PRN (13:35)
[2016-12-25 14:03] LABS: APPEARANCE,URINE HAZY (CLEAR,HAZY); COLOR,URINE YELLOW (YELLOW); OCCULT BLOOD,URINE MODERATE (NEGATIVE)
--- NOTE | 2016-12-25 14:31 | DRSVH ---
PROCEDURE: CT KUB ([id number]) INDICATIONS: right flank pain hematuria TECHNIQUE: Noncontrast 5 mm thick sections acquired from the diaphragms to the symphysis. 5 mm thick coronal an d sagittal reformats were then performed. For radiation dose reduction, the following was used: aut omated exposure control, adjustment of mA and/or kV according to patient size. COMPARISON: None. FINDINGS: Image quality: Excellent. Lung bases: Lung bases are clear. Heart size is normal. Urinary system: Both kidneys are normal in size. No kidney stones. No hydronephrosis or perinephri c fat stranding. Both ureters appear non-dilated throughout their expected courses. The urinary momo dder is incompletely distended. No calcified bladder stones. Other solid organs: There is a cyst in the left hepatic lobe measure up to 2.3 cm. The spleen is nor mal in size. The gallbladder is surgically absent. Pancreas is normal in contours. No adrenal nodu les. Peritoneum and bowel: Small and large bowel loops demonstrate normal wall thickness and caliber. The appendix is normal in appearance. No free fluid or air. Nodes and vessels: No retroperitoneal or mesenteric adenopathy by size criteria. Aorta and inferior vena cava are normal in caliber. Abdominal wall: No ventral hernias. Pelvis: No free pelvic fluid. No inguinal hernias or adenopathy. Bones: No suspicious bony lesions. No vertebral body compression fractures. IMPRESSION: 1. No evidence of nephrolithiasis or obstructive uropathy. 2. No evidence of appendicitis. Dictated by: Lenin Valencia M.D. on 12/25/2016 at 14:13 Approved by: Lenin Valencia M.D. on 12/25/2016 at 14:30
[2016-12-25 14:35] LABS: ICTOTEST,URINE NEGATIVE (Negative)
--- NOTE | 2016-12-25 14:50 | DRSVH ---
PROCEDURE: X-RAY CHEST ONE VIEW, PORTABLE ([id number]) INDICATIONS: cough TECHNIQUE: One view of the chest was acquired. COMPARISON: [facility], CR, XR CHEST 1VW, 04/26/2016, 22:20. FINDINGS: Surgical changes and devices: None. Lungs and pleura: No pleural effusions or pneumothorax. Lungs are clear. Mediastinum: Mediastinal contours appear normal. Heart size is normal. Bones and chest wall: No suspicious bony lesions. Overlying soft tissues appear unremarkable. IMPRESSION: Stable chest. No acute cardiopulmonary process is evident. Dictated by: Tae Guevara M.D. on 12/25/2016 at 13:48 Approved by: Tae Guevara M.D. on 12/25/2016 at 13:48
[2016-12-25] MEDS ORDERED: ProchlorPERazine 5 mg/mL 2 mL Inj IVPUSH ONE (15:10)
[2016-12-25] MEDS ORDERED: Trimethoprim-Sulfa 160 mg-800 mg Tablet PO ONE (15:55)
[2016-12-25] MEDS ORDERED: ONDA4TAB9 PO (15:57)
[2016-12-25] MEDS ORDERED: SULF1TAB35 PO (15:57)
[2016-12-25] MEDS ORDERED: IBUP800T28 PO (15:57)
[2016-12-25 16:08] VITALS: BP 122/72; PULSE 88; RESP 14; O2SAT 98
[2016-12-25 16:10] VITALS: BP 122/72; PULSE 88; RESP 14; O2SAT 98
== END 2016-12-25 16:14 | disposition home or self-care (01) ==
LOC: SED 11:35
DX: N39.0 Urinary tract infection, site not specified (principal); B96.20 Unspecified Escherichia coli [E. coli] as the cause of diseases classified elsewhere; R11.2 Nausea with vomiting, unspecified; R05 Cough; R51 Headache; R61 Generalized hyperhidrosis; R63.1 Polydipsia; R68.83 Chills (without fever); R63.0 Anorexia; J45.909 Unspecified asthma, uncomplicated; Z86.69 Personal history of other diseases of the nervous system and sense organs; Z86.59 Personal history of other mental and behavioral disorders; Z87.828 Personal history of other (healed) physical injury and trauma; Z98.890 Other specified postprocedural states; Z90.49 Acquired absence of other specified parts of digestive tract; Z88.8 Allergy status to other drugs, medicaments and biological substances
CPT/HCPCS: 36415; 71010; 74176; 80053; 81000; 81025; 83690; 83735; 85025; 87086; 87088; 87186; 93005; 96361; 96374; 96375; 99285; J0780; J1200; J1885; J7030

== ENCOUNTER 2016-12-27 17:33 | Emergency (ER) | payer MEDICARE, MEDICAID ==
[~2016-12-27] VITALS: Ht 160 cm; Wt 75.0 kg
[~2016-12-27 17:33] MED LIST changes: +IBUP800T28 PO; +ONDA4TAB9 PO; +SULF1TAB35 PO
[2016-12-27 17:45] VITALS: BP 115/80; PULSE 87; RESP 13; O2SAT 100
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
[2016-12-27] MEDS ORDERED: LidocaineVisc 2%:Antacid 1:1 10 mL Syringe PO ONE (19:25)
[2016-12-27 19:36] VITALS: BP 117/85; PULSE 88; RESP 18; O2SAT 98
== END 2016-12-27 20:00 | disposition home or self-care (01) ==
LOC: SED 17:33
DX: R10.13 Epigastric pain (principal); J45.909 Unspecified asthma, uncomplicated; F32.9 Major depressive disorder, single episode, unspecified; Z90.49 Acquired absence of other specified parts of digestive tract; Z88.8 Allergy status to other drugs, medicaments and biological substances